=== PATIENT | male | born 1955 | race Caucasian/White ===

== ENCOUNTER → 2017-04-15 | Outpatient (CLI) | payer MEDICARE ==
[~2017-04-15] MED LIST: METHACHOLINE CHLORIDE 100MG/VIAL IH ONE; RT-ALBUTEROL SULF 2.5 MG/3 ML PRE-MIX VIAL IH ONE; RT-SODIUM CHL INHALATION 3 ML VIAL ONE
== END ==
LOC: RT 15:15
PROVIDERS: ATTEND Internal Medicine Pulmonary Disease
DX: R06.02 Shortness of breath (principal)
CPT/HCPCS: 94070; 94640; 95070

== ENCOUNTER → 2017-11-05 | Outpatient (CLI) | payer MEDICARE ==
--- NOTE | 2017-11-05 11:00 | Diagnostic Imaging Report ---
INDICATION: Flank pain and hematuria. TECHNIQUE: Multiple realtime grayscale images were obtained of the kidneys in various projections bilaterally. FINDINGS: Right kidney measures 12 x 5.4 x 5.4 cm and left kidney measures 14 x 5.1 x 5.4 cm. Both kidneys demonstrate normal renal cortical thickness and echogenicity. There is no hydronephrosis, calculi or mass. Bilateral ureteral jets are visualized within the bladder. Bladder is normal in appearance. The IVC is not well seen. IMPRESSION: Unremarkable sonographic appearance of the kidneys. Dictated by: Dictated on workstation # [id number]
== END ==
LOC: RAD 09:39
PROVIDERS: ATTEND Family Medicine
DX: R31.9 Hematuria, unspecified (principal)
CPT/HCPCS: 76770

== ENCOUNTER → 2017-11-18 | Outpatient (CLI) | payer MEDICARE ==
[~2017-11-18] MED LIST changes: +IOHEXOL 350 MG/ML 100 ML (OMNIPAQUE 350) VIAL IV ONE; -METHACHOLINE CHLORIDE 100MG/VIAL IH ONE; +NS 100 ML (IVPB) BAG IV ONE; -RT-ALBUTEROL SULF 2.5 MG/3 ML PRE-MIX VIAL IH ONE; -RT-SODIUM CHL INHALATION 3 ML VIAL ONE
[2017-11-18 09:31] LABS: BUN/CREATININE RATIO 12; CALCIUM 8.9 MG/DL (8.5-10.1); CARBON DIOXIDE 24 MMOL/L (21-32); CHLORIDE 104 MMOL/L (98-107); CREATININE SERUM 1.07 MG/DL (0.60-1.30); GFR ESTIMATED > 60; GLUCOSE 106 MG/DL (70-105); SODIUM 138 MMOL/L (135-145)
--- NOTE | 2017-11-18 11:42 | Diagnostic Imaging Report ---
PROCEDURE: CT abdomen and pelvis with and without contrast. TECHNIQUE: Precontrast acquisitions were acquired through the abdomen and pelvis. Multiple contiguous axial images were obtained through the abdomen and pelvis after the administration of intravenous contrast. INDICATION: Bilateral flank pain. COMPARISON: There are no previous CT abdomen/pelvis examinations available for comparison. FINDINGS: On the pre intravenous contrast series, there do appear to be a few minute (1 mm) nonobstructive calculi within both kidneys. There is no evidence for urolithiasis, however, and the kidneys do not seem to be obstructed. The urinary bladder is not fully distended and consequently difficult to evaluate. The prostate gland does not appear to be enlarged. There are numerous diverticula involving the sigmoid and descending colon, but there is no evidence for acute diverticulitis. The appendix was not well visualized, but there are no indirect signs of acute appendicitis. The liver is of lower density than usually seen. This does suggest fatty metamorphosis. The spleen, pancreas, adrenals, aorta, and inferior vena cava are unremarkable for an acute abnormality. The stomach is partially filled with fluid and consequently difficult to assess. There is also some fluid in the duodenum. This finding is nonspecific. The gallbladder is surgically absent. The lung bases are clear. The bone windows show no sign of a fracture or of a destructive lesion. IMPRESSION: 1. There appear to be a few minute nonobstructive calculi within both kidneys. However, there is no evidence for obstruction of either collecting system. 2. No other acute abnormality of the abdomen or pelvis is noted. 3. There is diverticulosis of the sigmoid and descending colon without evidence for acute diverticulitis. 4. There is fluid within the duodenum, but this finding is nonspecific. Dictated by: Dictated on workstation # [id number]
== END ==
LOC: RAD 08:59
PROVIDERS: ATTEND Family Medicine
DX: N20.0 Calculus of kidney (principal); K57.30 Diverticulosis of large intestine without perforation or abscess without bleeding; Z90.49 Acquired absence of other specified parts of digestive tract
CPT/HCPCS: 36415; 74178; 80048

== ENCOUNTER → 2017-11-20 | Outpatient (CLI) | payer MEDICARE ==
--- NOTE | 2017-11-20 15:24 | Diagnostic Imaging Report ---
INDICATION: Low back pain. TIME OF EXAM: 02:34 p.m. FINDINGS: Curvature and alignment of the lumbar spine is normal. The vertebral body heights are well maintained. No acute compression fracture is identified. There is generalized degenerative disc disease with variable disc space narrowing and marginal spurring. This appears greatest at the L5-S1 level. No spondylolysis or spondylolisthesis is detected. IMPRESSION: Lumbar spondylosis. No acute bony abnormality is detected. Dictated by: Dictated on workstation # [id number]
--- NOTE | 2017-11-20 15:25 | Diagnostic Imaging Report ---
INDICATION: Back pain. TIME OF EXAM: 2:33 PM. FINDINGS: The curvature and alignment are normal. The vertebral body heights are maintained. No acute compression fracture is seen. Generalized degenerative disc disease is seen. The pedicles and paraspinous line are intact. IMPRESSION: Thoracic spondylosis. No acute bony abnormality is detected. Dictated by: Dictated on workstation # [id number]
== END ==
LOC: RAD 13:59
PROVIDERS: ATTEND Family Medicine
DX: M47.816 Spondylosis without myelopathy or radiculopathy, lumbar region (principal); M47.814 Spondylosis without myelopathy or radiculopathy, thoracic region
CPT/HCPCS: 72072; 72110

== ENCOUNTER → 2017-11-28 | Outpatient (CLI) | payer MEDICARE ==
--- NOTE | 2017-11-28 13:15 | Diagnostic Imaging Report ---
INDICATION: Bilateral kidney stones. Back pain. COMPARISON: None. FINDINGS: Multiple supine views of the abdomen demonstrate nonobstructive small bowel gas pattern. Mild amount of air and stool are seen scattered throughout the colon. No large collection of free intraperitoneal air is seen. No abnormal extraosseous calcifications or radiopaque foreign bodies are identified. Bony structures are age-appropriate. IMPRESSION: 1. Unremarkable radiographic exam of the abdomen. Dictated by: Dictated on workstation # [id number]
== END ==
LOC: RAD 12:37
PROVIDERS: ATTEND Urology
DX: N20.0 Calculus of kidney (principal)
CPT/HCPCS: 74018

== ENCOUNTER → 2018-01-15 | Outpatient (CLI) | payer MEDICARE ==
[~2018-01-15] MED LIST changes: -NS 100 ML (IVPB) BAG IV ONE; +NS 250 ML (IVPB) BAG IV ONE
--- NOTE | 2018-01-15 09:07 | Diagnostic Imaging Report ---
PROCEDURE: CT lumbar spine with contrast. TECHNIQUE: Multiple contiguous axial images were obtained through the lumbar spine after the intrathecal administration of contrast. Sagittal and coronal reformations were then performed. INDICATION: Low back pain. FINDINGS: Vertebral body height and alignment appears normal. There is disc space narrowing at L4-L5 and L5-S1. There is vacuum disc phenomenon at L4-L5 and there are Modic changes of the opposing endplates at L5-S1. There is spondylosis with anterior osteophytes present throughout the lumbar spine. Posterior elements are unremarkable. IMPRESSION: Spondylosis deformans. Advanced degenerative disc changes at L4-L5 and L5-S1. No acute abnormalities seen. Dictated by: Dictated on workstation # [id number]
== END ==
LOC: RAD 08:01
PROVIDERS: ATTEND Family Medicine
DX: M47.817 Spondylosis without myelopathy or radiculopathy, lumbosacral region (principal); M51.37 Other intervertebral disc degeneration, lumbosacral region; Z87.442 Personal history of urinary calculi
CPT/HCPCS: 72132

== ENCOUNTER → 2018-03-07 | Outpatient (CLI) | payer MEDICARE | LOC: LAB 15:02 | PROVIDERS: ATTEND Neurological Surgery | DX: M54.9 Dorsalgia, unspecified (principal) | CPT/HCPCS: 36415; 86812 ==